=== PATIENT | female | born 1985 | race Two or more races ===

== ENCOUNTER → 2019-01-02 | Outpatient (CLI) | payer MEDICAID, OTHER ==
[~2019-01-02] VITALS: Ht 167.6 cm; Wt 122.9 kg
== END | disposition home or self-care (01) ==
LOC: OPS 09:22
PROVIDERS: ATTEND Specialist
DX: O26.893 Other specified pregnancy related conditions, third trimester (principal); Z3A.28 28 weeks gestation of pregnancy; Z67.21 Type B blood, Rh negative
CPT/HCPCS: 36415; 86850; 86900; 86901; 96372; J2791